=== PATIENT | female | born 1980 | race Caucasian/White ===

== ENCOUNTER 2017-10-15 18:33 | Inpatient (IN) | payer MEDICAID, OTHER ==
[~2017-10-15] VITALS: Ht 149.9 cm; Wt 61.7 kg
[2017-10-15 19:51] LABS: BASOPHILS # (AUTO) 0.06 K/uL (0.00-0.20); BASOPHILS % (AUTO) 0.9 % (0.0-2.0); EOSINOPHILS # (AUTO) 0.17 K/uL (0.00-0.70); EOSINOPHILS % (AUTO) 2.73 % (1.0-6.0); HEMATOCRIT 40.9 % (36-46); LYMPHOCYTES # (AUTO) 3.1 K/uL (1.0-4.8); LYMPHOCYTES % (AUTO) 48.7 % (22.0-44.0); MEAN CORPUSCULAR HEMOGLOBIN 32.5 pg (26.0-34.0); MEAN CORPUSCULAR HGB CONC 34.4 G/dL (31.0-37.0); MEAN CORPUSCULAR VOLUME 95 fL (80-100); MONOCYTES # (AUTO) 0.6 K/uL (0.1-1.0); MONOCYTES % (AUTO) 9.1 % (2.0-9.0); NEUTROPHILS # (AUTO) 2.4 K/uL (1.8-7.7); NEUTROPHILS % (AUTO) 38.5 % (40.0-70.0); PLATELET COUNT (AUTO) 245 K/uL (150-450); RED BLOOD CELL COUNT(AUTO) 4.32 MIL/uL (4.00-5.20); RED CELL DISTRIBUTION WIDTH 13.4 % (11.5-14.5); WHITE BLOOD COUNT (AUTO) 6.3 K/uL (4.5-11.0)
[2017-10-15] MEDS ORDERED: SODIUM CHLORIDE 0.9% 1,000 ML IV ONE (20:00)
[2017-10-15 20:09] LABS: ANION GAP 11 mmol/L (8-16); CARBON DIOXIDE 28 mmol/L (22-29); CHLORIDE 101 mmol/L (98-107); CREATININE 0.63 mg/dL (0.60-1.30); GLOMERULAR FILTR. RATE CALC > 60 mL/min (>60); POTASSIUM 3.6 mmol/L (3.5-5.1); SODIUM SERUM 140 mmol/L (136-145); UREA NITROGEN, BLOOD 4 mg/dL (7-18)
[2017-10-15 20:12] LABS: ALANINE AMINOTRANSFERASE 208 U/L (12-78); ALBUMIN 4.4 g/dL (3.4-5.0); ASPARTATE AMINOTRANSFERASE 288 U/L (15-37); BILIRUBIN,TOTAL 0.6 mg/dL (0.1-1.0); TOTAL PROTEIN, SERUM 8.7 g/dL (6.4-8.2)
[2017-10-15] MEDS ORDERED: LORazepam 1 MG TABLET PO ONE ×2 (20:15→23:00)
[2017-10-15] MEDS ORDERED: LORazepam 2 MG TABLET PO PRN ×2 (22:45)
[2017-10-15] MEDS ORDERED: HALOPERIDOL 5 MG TABLET PO PRN (22:45)
[2017-10-15] MEDS ORDERED: MAG HYDROX/AL HYDROX/SIMETH ES 30 ML SUSPENSION UDCUP PO PRN (22:45)
[2017-10-15] MEDS ORDERED: ACETAMINOPHEN 325 MG TABLET PO PRN (22:45)
[2017-10-15] MEDS ORDERED: MAGNESIUM HYDROXIDE SUSPENSION 30 ML UDCUP PO PRN (22:45)
[2017-10-16] VITALS (12 sets, daily range): BP systolic 99–132; BP diastolic 61–90
[2017-10-16] MEDS: ZOLPIDEM TARTRATE 10 MG TABLET PO PRN ×2 (03:48→22:03)
[2017-10-16 06:53] LABS: CHOL/HDL RATIO 2.3 (3.9-5.7)
[2017-10-16] MEDS ORDERED: LORazepam 2 MG TABLET PO PRN (07:00)
[2017-10-16] MEDS ORDERED: ALBUTEROL SULFATE HFA 90 MCG/PUFF 8 GM INHALER IH PRN (08:00)
[2017-10-16] MEDS ORDERED: LOPERAMIDE HCL 2 MG CAPSULE PO PRN (08:00)
[2017-10-16] MEDS ORDERED: CloNIDine HCL 0.1 MG TABLET PO PRN (08:00)
[2017-10-16] MEDS ORDERED: BACITRACIN 28.4 GM OINTMENT TP PRN (08:00)
[2017-10-16] MEDS ORDERED: PETROLATUM,WHITE 71 GM JELLY TP PRN (08:00)
[2017-10-16] MEDS ORDERED: BENZOCAINE/MENTHOL LOZENGE MM PRN (08:00)
[2017-10-16] MEDS: LORazepam 2 MG TABLET PO SCH ×5 (09:00→20:13)
[2017-10-16] MEDS: SERTRALINE HCL 50 MG TABLET PO SCH (09:56)
[2017-10-16] MEDS: ONDANSETRON HCL 4 MG TABLET PO PRN (10:09)
[2017-10-17] VITALS (8 sets, daily range): BP systolic 92–123; BP diastolic 62–88
[2017-10-17] MEDS: ONDANSETRON HCL 4 MG TABLET PO PRN (08:45)
[2017-10-17] MEDS: LORazepam 2 MG TABLET PO SCH ×4 (09:14→20:51)
[2017-10-17] MEDS: SERTRALINE HCL 50 MG TABLET PO SCH (09:14)
[2017-10-17] MEDS: IBUPROFEN 600 MG TABLET PO PRN (11:46)
[2017-10-17] MEDS: ZOLPIDEM TARTRATE 10 MG TABLET PO PRN (20:51)
[2017-10-18 06:11] VITALS: BP 110/67
[2017-10-18] MEDS ORDERED: LORazepam 1 MG TABLET PO PRN (07:00)
[2017-10-18 08:38] VITALS: BP 100/68
[2017-10-18 08:39] VITALS: BP 100/68
[2017-10-18] MEDS: IBUPROFEN 600 MG TABLET PO PRN (09:34)
[2017-10-18] MEDS: LORazepam 1 MG TABLET PO SCH ×4 (09:34→20:12)
[2017-10-18] MEDS: ONDANSETRON HCL 4 MG TABLET PO PRN (09:34)
[2017-10-18] MEDS: SERTRALINE HCL 50 MG TABLET PO SCH (09:34)
[2017-10-18 12:09] LABS: HEPATITIS Bs ANTIGEN SCREEN P Negative (Negative); HEPATITIS C AB SCREEN <0.1 s/co ratio (0.0-0.9)
[2017-10-18 18:00] VITALS: BP 118/72
[2017-10-18 18:30] VITALS: BP 132/77
[2017-10-18] MEDS: ZOLPIDEM TARTRATE 10 MG TABLET PO PRN (19:57)
[2017-10-19 06:27] VITALS: BP_SYST 121; BP_SYST 132; BP_DIAS 70
[2017-10-19] MEDS ORDERED: LORazepam 1 MG TABLET PO PRN (07:00)
[2017-10-19 09:08] VITALS: BP 102/68
[2017-10-19 09:12] VITALS: BP 102/68
[2017-10-19] MEDS: SERTRALINE HCL 50 MG TABLET PO SCH (09:32)
[2017-10-19] MEDS: IBUPROFEN 600 MG TABLET PO PRN (09:34)
[2017-10-19] MEDS ORDERED: SERT100T12 PO (14:09)
== END 2017-10-19 15:00 | disposition home or self-care (01) | DRG 751 ==
LOC: EMS 18:34 → 3EI 22:48
PROVIDERS: ADMIT Psychiatry & Neurology Psychiatry; ATTEND Psychiatry & Neurology Psychiatry
DX: F33.2 Major depressive disorder, recurrent severe without psychotic features (principal); F41.9 Anxiety disorder, unspecified; Y90.8 Blood alcohol level of 240 mg/100 ml or more; F10.229 Alcohol dependence with intoxication, unspecified; G47.00 Insomnia, unspecified; Z82.49 Family history of ischemic heart disease and other diseases of the circulatory system; Z82.3 Family history of stroke; Z81.8 Family history of other mental and behavioral disorders; Z79.899 Other long term (current) drug therapy
CPT/HCPCS: 80074; 82306; 84443; 96360; 99285; G0480; J7030; Q0162